=== PATIENT | male | born 1970 | race American Indian/Alaskan Native ===

== ENCOUNTER 2018-02-14 11:17 | Emergency (ER) | payer MEDICAID ==
--- NOTE | 2018-02-14 11:35 | C.PDOC ---
Time Seen by Provider: 02/14/18 11:30 Chief Complaint (Nursing): Substance Abuse Past Medical History Vital Signs: Last Vital Signs Temp 99.1 F 02/14/18 11:19 Pulse 90 02/14/18 11:19 Resp 18 02/14/18 11:19 BP 131/80 02/14/18 11:19 Pulse Ox 100 02/14/18 11:19 - Social History Hx Alcohol Use: Yes Hx Substance Use: Yes (yesterday) - Immunization History Hx Tetanus Toxoid Vaccination: No ED Course And Treatment O2 Sat by Pulse Oximetry: 100 - Physician Consult Information Time Consulting Physician Contacted: 11:32 Outcome Of Conversation: d/w crisiS, NO DETOX BEDS AVAIL Disposition Counseled Patient/Family Regarding: Diagnosis - Disposition Referrals: DETOX,PRESCREEN [Other] Disposition: HOME/ ROUTINE Disposition Time: 11:32 Condition: GOOD Instructions: Polysubstance Abuse (DC) - Clinical Impression Clinical Impression: Drug abuse
[2018-02-14 12:01] VITALS: BP 133/87; PULSE 82; RESP 16; TEMP 98.7; O2SAT 97
--- NOTE | 2018-02-14 12:27 | C.PDOC ---
History Of Present Illness 47 year old male patient presents to the ER with a detox request for narcotics. Patient denies fever, chills, nausea, vomiting, diarrhea, weakness, dizziness, and SI/HI. Time Seen by Provider: 02/14/18 11:30 Chief Complaint (Nursing): Substance Abuse History Per: Patient History/Exam Limitations: no limitations Past Medical History Reviewed: Historical Data, Nursing Documentation, Vital Signs Vital Signs: Last Vital Signs Temp 98.7 F 02/14/18 11:59 Pulse 82 02/14/18 11:59 Resp 16 02/14/18 11:59 BP 133/87 02/14/18 11:59 Pulse Ox 97 02/14/18 12:35 Family History: States: No Known Family Hx - Social History Hx Alcohol Use: Yes Hx Substance Use: Yes (yesterday) - Immunization History Hx Tetanus Toxoid Vaccination: No Review Of Systems Except As Marked, All Systems Reviewed And Found Negative. Constitutional: Negative for: Fever, Chills Gastrointestinal: Negative for: Nausea, Vomiting, Diarrhea Neurological: Negative for: Weakness, Dizziness Psych: Negative for: Suicidal ideation, Other (Homicial ideation) Physical Exam - Physical Exam Appears: Well, Non-toxic, No Acute Distress Skin: Normal Color, Warm, Dry Head: Atraumatic, Normacephalic Eye(s): bilateral: Normal Inspection, EOMI Neck: Normal ROM, Supple Chest: Symmetrical, No Deformity Cardiovascular: Rhythm Regular Respiratory: Normal Breath Sounds Gastrointestinal/Abdominal: Soft, No Tenderness Back: No CVA Tenderness Extremity: Normal ROM (x4) Neurological/Psych: Oriented x3, Normal Speech, No Other (focal deficits) Gait: Steady ED Course And Treatment O2 Sat by Pulse Oximetry: 97 (RA) Pulse Ox Interpretation: Normal Progress Note: Impression: patient requesting narcotic detox. Reassess: Patient was referred to another detox clinic. - Physician Consult Information Time Consulting Physician Contacted: 11:32 Outcome Of Conversation: d/w crisis, no detox beds available Disposition Counseled Patient/Family Regarding: Diagnosis - Disposition Referrals: DETOX,PRESCREEN [Other] Disposition: HOME/ ROUTINE Disposition Time: 11:32 Condition: GOOD Instructions: Polysubstance Abuse (DC) Forms: [employer] (Romansh) - Clinical Impression Clinical Impression: Drug abuse - Scribe Statement The provider has reviewed the documentation as recorded by the Scribe Rojas Do Provider Attestation: All medical record entries made by the Julián were at my direction and personally dictated by me. I have reviewed the chart and agree that the record accurately reflects my personal performance of the history, physical exam, medical decision making, and the department course for this patient. I have also personally directed, reviewed, and agree with the discharge instructions and disposition.
== END 2018-02-14 12:01 | disposition home or self-care (01) ==
LOC: C.ER 11:17
DX: F19.10 Other psychoactive substance abuse, uncomplicated (principal)